=== PATIENT | female | born 1945 | race African-American/Black ===

== ENCOUNTER 2017-07-03 14:38 | Outpatient (CLI) | payer MEDICARE, OTHER | END 2017-07-03 14:39 | disposition home or self-care (01) | LOC: BICMAMMO 14:38 | PROVIDERS: ATTEND Internal Medicine | DX: Z13.820 Encounter for screening for osteoporosis (principal); Z78.0 Asymptomatic menopausal state | CPT/HCPCS: 77080 ==

== ENCOUNTER 2017-08-20 08:11 | Outpatient (CLI) | payer MEDICARE, OTHER | END 2017-08-20 08:12 | disposition home or self-care (01) | LOC: BICMAMMO 08:11 | PROVIDERS: ATTEND Internal Medicine | DX: Z12.31 Encounter for screening mammogram for malignant neoplasm of breast (principal) | CPT/HCPCS: 77063; 77067 ==

== ENCOUNTER 2018-02-03 16:14 | Emergency (ER) | payer MEDICARE, OTHER ==
[2018-02-03 16:56] LABS: #Eosinphils 0.1 thou/uL (0.0-0.7); #Lymphocytes 2.2 thou/uL (1.20-3.40); #Monocytes 0.7 thou/uL (0.11-0.59); #Neutrophils 5.5 thou/uL (1.40-6.50); %Basophils 0.4 % (0.0-1.0); %Eosinophils 1.3 % (0.0-10.0); %Lymphocytes 25.9 % (21.0-51.0); %Monocytes 8.2 % (0.0-10.0); %Neutrophils 64.3 % (42.0-75.0); Hemoglobin 13.4 g/dL (12.0-16.0); Mean Corpuscular HGB CONC 34.3 g/dL (32.0-36.0); Mean Corpuscular Hemoglobin 32.7 pg (27.0-31.0); Mean Corpuscular Volume 95.3 fL (78.0-98.0); Mean Platelet Volume 7.5 fL (7.4-10.4); Platelet Count 317 thou/uL (130-400); RBC Distribution Width 11.7 % (11.5-14.5); White Blood Cell (WBC) Count 8.6 thou/uL (4.8-10.8)
[2018-02-03 17:16] LABS: ALT (SGPT) 17 U/L (8-55); AST (SGOT) 19 U/L (5-34); Albumin 4.3 g/dL (3.4-4.8); Alkaline Phosphatase 52 U/L (40-150); Anion Gap 13 mmol/L (10-20); BUN (Urea Nitrogen) 18 mg/dL (9.8-20.1); Bilirubin, Total 0.3 mg/dL (0.2-1.2); Calc. Creatinine Clearance 0 mL/min (70-130); Calcium 9.1 mg/dL (7.8-10.44); Carbon Dioxide 25 mmol/L (23-31); Chloride 105 mmol/L (98-107); Estimated GFR-MDRD 82; Glucose 96 mg/dL (83-110); Potassium 3.6 mmol/L (3.5-5.1); Protein, Total 7.3 g/dL (6.0-8.3); Sodium 139 mmol/L (136-145)
--- NOTE | 2018-02-03 18:25 | RAD ---
RIGHT TIBIA AND FIBULA TWO VIEWS: HISTORY: Dog bite with possible infected wounds. COMPARISON: None. FINDINGS: Two views of the fibula show a right knee prosthesis without perihardware lucency or fracture. Diffu se soft tissue swelling is seen. No osseous erosions are seen. There is no evidence of fracture or dislocation. IMPRESSION: Soft tissue swelling without underlying acute osseous abnormality. POS: [facility]
[2018-02-03] MEDS ORDERED: Ampicillin/Sulbactam 1.5 GM in Sodium Chloride 0.9% 100 ML IVPB SCH (19:00)
== END 2018-02-03 20:18 | disposition home or self-care (01) ==
LOC: ERS 16:14
DX: S91.051A Open bite, right ankle, initial encounter (principal); I10 Essential (primary) hypertension; Z79.899 Other long term (current) drug therapy; W54.0XXA Bitten by dog, initial encounter
CPT/HCPCS: 36415; 80053; 85025; 87040; 96365; J0295; J7050

== ENCOUNTER 2018-08-22 08:42 | Outpatient (CLI) | payer MEDICARE, OTHER ==
--- NOTE | 2018-08-22 11:58 | MMO ---
Bilateral MAMMO Bilat Screen [facility]. CLINICAL HISTORY: Patient is 73 years old and is seen for screening. The patient has no family history of breast cancer. The patient has a history of Skin cancer. VIEWS: The views performed were: bilateral craniocaudal with tomosynthesis and bilateral mediolateral oblique with tomosynthesis. FILMS COMPARED: The present examination has been compared to prior imaging studies performed at 07/03/2013, 07/08/2014 and 07/11/2015, and at [facility] on 08/20/2017. MAMMOGRAM FINDINGS: There are scattered fibroglandular densities. Benign calcifications are noted bilaterally. There are no suspicious masses, suspicious calcifications, or new areas of architectural distortion. IMPRESSION: THERE IS NO MAMMOGRAPHIC EVIDENCE OF MALIGNANCY. A ROUTINE FOLLOW-UP MAMMOGRAM IN 1 YEAR IS RECOMMENDED. THE RESULTS OF THIS EXAM WERE SENT TO THE PATIENT. ACR BI-RADS Category 2 - Benign finding MAMMOGRAPHY NOTE: 1. A negative mammogram report should not delay a biopsy if a dominant of clinically suspicious mass is present. 2. Approximately 10% to 15% of breast cancers are not detected by mammography. 3. Adenosis and dense breasts may obscure an underlying neoplasm.
== END 2018-08-22 08:43 | disposition home or self-care (01) ==
LOC: BICMAMMO 08:42
PROVIDERS: ATTEND Internal Medicine
DX: Z12.31 Encounter for screening mammogram for malignant neoplasm of breast (principal)
CPT/HCPCS: 77063; 77067

== ENCOUNTER 2018-09-19 09:27 | Outpatient (CLI) | payer MEDICARE, OTHER ==
--- NOTE | 2018-09-19 09:53 | RAD ---
2 VIEWS RIGHT HEEL: Date: 09/19/18 INDICATION: Heel pain. FINDINGS: There is prominent enthesopathic change off the posterior and plantar calcaneus. No acute fracture is evident. Mild degenerative change seen within the midfoot. IMPRESSION: Prominent enthesopathic change off the posterior and plantar aspect of the calcaneus. POS: OFF
== END 2018-09-19 09:28 | disposition home or self-care (01) ==
LOC: BICRAD 09:27
PROVIDERS: ATTEND Internal Medicine
DX: M79.671 Pain in right foot (principal); M89.9 Disorder of bone, unspecified

== ENCOUNTER 2019-03-30 14:09 | Outpatient (CLI) | payer MEDICARE ==
--- NOTE | 2019-03-30 14:30 | RAD ---
Exam: XR Finger(s) Rt Min 2 View HISTORY: Injury of right thumb. Patient fell and twisted thumb last week. Continues to have pain. COMPARISON: None FINDINGS: There is osteoarthritis involving the first carpal metacarpal joint, metacarpal phalangeal joint, and interphalangeal joint of the right thumb. The base of the metacarpal of the thumb is displaced laterally related to the osteoarthritis. There is osteoarthritis involving the greater multangular shimon int as well. Osteoarthritis involves the metacarpal phalangeal joint of the index finger. No acute fracture, dislocation, or other acute osseous abnormality is identified. IMPRESSION: 1. No acute osseous abnormality. 2. Prominent osteoarthritis involving the right thumb.
== END 2019-03-30 14:10 | disposition home or self-care (01) ==
LOC: BICRAD 14:09
PROVIDERS: ATTEND Internal Medicine
DX: S69.91XA Unspecified injury of right wrist, hand and finger(s), initial encounter (principal); M19.041 Primary osteoarthritis, right hand

== ENCOUNTER 2019-09-25 08:31 | Outpatient (CLI) | payer MEDICARE, OTHER ==
--- NOTE | 2019-09-25 09:09 | MMO ---
Bilateral MAMMO Bilat Screen [facility]. CLINICAL HISTORY: Patient is 74 years old and is seen for screening. The patient has no family history of breast cancer. The patient has a history of Skin cancer. VIEWS: The views performed were: bilateral craniocaudal with tomosynthesis and bilateral mediolateral oblique with tomosynthesis. FILMS COMPARED: The present examination has been compared to prior imaging studies performed at and 08/22/2018. This study has been interpreted with the assistance of computer-aided detection. MAMMOGRAM FINDINGS: There are scattered fibroglandular densities. There are benign appearing calcifications seen in both breasts. There are no suspicious masses, suspicious calcifications, or new areas of architectural distortion. IMPRESSION: THERE IS NO MAMMOGRAPHIC EVIDENCE OF MALIGNANCY. A ROUTINE FOLLOW-UP MAMMOGRAM IN 1 YEAR IS RECOMMENDED. THE RESULTS OF THIS EXAM WERE SENT TO THE PATIENT. ACR BI-RADS Category 2 - Benign finding MAMMOGRAPHY NOTE: 1. A negative mammogram report should not delay a biopsy if a dominant of clinically suspicious mass is present. 2. Approximately 10% to 15% of breast cancers are not detected by mammography. 3. Adenosis and dense breasts may obscure an underlying neoplasm. Reported by: SURYA YEPEZ MD Electonically Signed: [id number]
== END 2019-09-25 08:32 | disposition home or self-care (01) ==
LOC: BICMAMMO 08:31
PROVIDERS: ATTEND Internal Medicine
DX: Z12.31 Encounter for screening mammogram for malignant neoplasm of breast (principal); Z85.828 Personal history of other malignant neoplasm of skin
CPT/HCPCS: 77063; 77067

== ENCOUNTER 2020-06-10 08:26 | Outpatient (CLI) | payer MEDICARE, OTHER ==
--- NOTE | 2020-06-10 08:52 | RAD ---
Exam: XR Shoulder Lt 3 View STANDARD HISTORY: Left anterior shoulder pain. COMPARISON: None FINDINGS: Minimal left acromioclavicular joint osteoarthritis is present. No fracture or dislocation is identif ied. Degenerative changes are seen in the visualized thoracic spine. Vascular calcifications are seen in the thoracic aorta. Calcified granuloma is seen in the left midlu ng zone. IMPRESSION: No acute osseous abnormality is identified.
== END 2020-06-10 08:27 | disposition home or self-care (01) ==
LOC: BICRAD 08:26
PROVIDERS: ATTEND Internal Medicine
DX: M25.512 Pain in left shoulder (principal)

== ENCOUNTER 2020-07-18 10:25 | Outpatient (CLI) | payer MEDICARE, OTHER ==
--- NOTE | 2020-07-18 11:40 | MRI ---
MRI Upper Ext Jt Lt WO Con History: Traumatic tear left rotator cuff Comparison: Left shoulder radiograph May 2020 Findings: Biceps tendon: Severe interstitial tearing at the proximal intertubercular groove with volume loss. Interstitial tear extends into the very attenuated intra-articular tendon which has extensive interstitial tearing. Labrum: Tear throughout the superior labrum anterior-posterior to the biceps labral expansion extendi ng into the posterior superior labrum. Rotator cuff: Interstitial type delamination of the superior fibers subscapularis tendon. Full thickn ess, full width supraspinatus and infraspinatus tendon tears from the footprint retracted to the differential retraction of fibers, the bursal surface fibers retracted to the mid humeral head and th e articular surface fibers to the medial humeral head. Muscles: Moderate supraspinatus and infraspinatus muscle atrophy. Cartilage: A few full thickness chondral fissures of the central glenoid inferiorly. 25-50% chondral fraying of the humeral head. Soft tissues: Small joint effusion. Small subacromial subdeltoid bursa effusion. Bones: Type II acromion. Moderate degenerative disease acromioclavicular joint. Normal glenoid versio n. Impression: 1. Full thickness, full width supraspinatus and infraspinatus tendon tears from the footprint with di fferential fiber retraction. Moderate associated muscle atrophy. 2. Superior labral tear anterior-posterior to the biceps labral expansion extending into an intrasubs tance posterior superior labral tear. 3. 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 4. Severe interstitial tearing of the biceps tendon proximal intertubercular groove extending to the intra-articular tendon. There is also some subluxation upon the lesser tuberosity likely from a partially insufficient biceps tonai and the subscapularis tendon for which there is an adjacent line ar split tear for which it is partially subluxed into. Transcribed Date/Time: 07/18/2020 1:19 PM
== END 2020-07-18 10:26 | disposition home or self-care (01) ==
LOC: BICMRI 10:25
PROVIDERS: ATTEND Orthopaedic Surgery
DX: S46.012A Strain of muscle(s) and tendon(s) of the rotator cuff of left shoulder, initial encounter (principal); M75.122 Complete rotator cuff tear or rupture of left shoulder, not specified as traumatic; M94.212 Chondromalacia, left shoulder; M62.512 Muscle wasting and atrophy, not elsewhere classified, left shoulder

== ENCOUNTER 2020-07-29 09:00 | Outpatient (CLI) | payer MEDICARE, OTHER ==
[2020-07-29 10:35] LABS: #Basophils 0.1 10x3/uL (0.0-0.2); #Eosinphils 0.1 10x3/uL (0.0-0.5); #Monocytes 0.5 10x3/uL (0.0-1.1); #Neutrophils 3.1 10x3/uL (1.5-8.4); %Basophils 1.1 % (0.0-2.0); %Eosinophils 2.5 % (0.0-6.0); %Lymphocytes 33.3 % (18.0-47.0); %Monocytes 8.6 % (0.0-10.0); %Neutrophils 54.1 % (40.0-75.0); Hemoglobin 14.5 g/dL (12.0-15.5); Mean Corpuscular HGB CONC 32.5 g/dL (32.0-36.0); Mean Corpuscular Hemoglobin 30.5 pg (27.0-33.0); Mean Corpuscular Volume 93.7 fl (81.6-98.3); Mean Platelet Volume 10.1 fl (7.4-10.4); Platelet Count 346 10x3/uL (150-450); RBC Distribution Width 13.4 % (11.5-14.5); Red Blood Cell (RBC) Count 4.76 10x6/uL (3.90-5.03); White Blood Cell (WBC) Count 5.7 10x3/uL (3.5-10.5)
[2020-07-29 11:19] LABS: Calcium 9.3 mg/dL (7.8-10.44); Chloride 106 mmol/L (98-107); Glucose 87 mg/dL (83-110); Potassium 4.3 mmol/L (3.5-5.1); Sodium 143 mmol/L (136-145)
[2020-07-29 11:30] LABS: Anion Gap 13 mmol/L (10-20); BUN (Urea Nitrogen) 16 mg/dL (9.8-20.1); Calc. Creatinine Clearance 0 mL/min (70-130); Carbon Dioxide 28 mmol/L (23-31)
[2020-07-29 21:52] LABS: SARS-CoV-2 PCR by NAA Not Detected (NotDetected)
== END 2020-07-29 09:01 | disposition home or self-care (01) ==
LOC: LABBT 09:00
PROVIDERS: ATTEND Orthopaedic Surgery
DX: Z01.818 Encounter for other preprocedural examination (principal); Z20.822 Contact with and (suspected) exposure to COVID-19; S46.012A Strain of muscle(s) and tendon(s) of the rotator cuff of left shoulder, initial encounter
CPT/HCPCS: 80048; 85025; 93005; U0003; U0005; 87635; 93010

== ENCOUNTER 2020-08-03 06:53 | Day surgery (SDC) | payer MEDICARE, OTHER ==
[2020-08-02 10:28] VITALS: BMI 25.9
[2020-08-03] MEDS ORDERED: Vancomycin 1 GM/200 ML BAG ONE (07:45)
[2020-08-03] MEDS ORDERED: Fentanyl 100 MCG/2 ML VIAL ONE ×2 (08:31→09:49)
[2020-08-03] MEDS ORDERED: Midazolam HCl 2 mg/2 ml Vial ONE (08:31)
[2020-08-03] MEDS ORDERED: Promethazine HCl 25 MG/ML VIAL IM PRN (09:00)
[2020-08-03] MEDS ORDERED: Ropivacaine 0.2% 550 ML 550 ML NERVE BLCK SCH (09:00)
[2020-08-03] MEDS ORDERED: traMADol HCl 50 MG TAB PO PRN ×2 (09:00)
[2020-08-03] MEDS ORDERED: HYDROcodone/Acetaminophen 10/325 mg Tablet PO PRN ×2 (09:00)
[2020-08-03] MEDS ORDERED: Zolpidem Tartrate 5 MG TAB PO PRN (09:00)
[2020-08-03] MEDS ORDERED: Ondansetron PF 4 MG/2 ML Vial IVP PRN (09:00)
[2020-08-03] MEDS ORDERED: Fentanyl 100 MCG/2 ML VIAL IV PRN (09:01)
[2020-08-03] MEDS ORDERED: PROPOFOL 200 MG/20 ML VIAL ONE (09:42)
[2020-08-03] MEDS ORDERED: PHENYLEPHRINE-NS 100 MCG/ML 10 ML SYRINGE ONE ×2 (09:42→10:28)
[2020-08-03] MEDS ORDERED: Ondansetron PF 4 MG/2 ML Vial ONE (09:42)
[2020-08-03] MEDS ORDERED: Rocuronium Bromide 10 MG/ML (10ML VIAL) ONE (09:42)
[2020-08-03] MEDS ORDERED: Lidocaine 1% PF 5 ML VIAL ONE (09:42)
[2020-08-03] MEDS ORDERED: Dexamethasone 20 MG/5 ML VIAL ONE (09:42)
[2020-08-03] MEDS ORDERED: SUGAMMADEX SODIUM 200 MG/2 ML VIAL ONE (10:40)
[2020-08-03] MEDS ORDERED: HYDROcodone/Acetaminophen 5/325 mg Tablet ONE (11:54)
== END 2020-08-03 13:48 | disposition home or self-care (01) ==
LOC: SDC 06:53
PROVIDERS: ATTEND Orthopaedic Surgery
PROC: 0RHK04Z Insertion of Internal Fixation Device into Left Shoulder Joint, Open Approach (ICD-10-PCS; principal; 2020-08-03)
PROC: 0LQ20ZZ Repair Left Shoulder Tendon, Open Approach (ICD-10-PCS; 2020-08-03)
PROC: 0RHK04Z Insertion of Internal Fixation Device into Left Shoulder Joint, Open Approach (ICD-10-PCS; 2020-08-03)
PROC: 0LS40ZZ Reposition Left Upper Arm Tendon, Open Approach (ICD-10-PCS; 2020-08-03)
PROC: 3E0T3BZ Introduction of Anesthetic Agent into Peripheral Nerves and Plexi, Percutaneous Approach (ICD-10-PCS; 2020-08-03)
DX: S46.012A Strain of muscle(s) and tendon(s) of the rotator cuff of left shoulder, initial encounter (principal); M25.812 Other specified joint disorders, left shoulder; S46.212A Strain of muscle, fascia and tendon of other parts of biceps, left arm, initial encounter; M25.312 Other instability, left shoulder; G89.18 Other acute postprocedural pain; M19.012 Primary osteoarthritis, left shoulder; I10 Essential (primary) hypertension; E78.5 Hyperlipidemia, unspecified; I08.1 Rheumatic disorders of both mitral and tricuspid valves; G20 Parkinson's disease; Z79.899 Other long term (current) drug therapy; Z91.041 Radiographic dye allergy status; Z91.013 Allergy to seafood; W19.XXXA Unspecified fall, initial encounter
CPT/HCPCS: 23410; 23430; 64416; A4306; C1713 ×2; J0690; J1100; J2250; J2405; J2704; J2795; J3010; J3370

== ENCOUNTER 2020-09-29 08:52 | Outpatient (CLI) | payer MEDICARE, OTHER | END 2020-09-29 08:53 | disposition home or self-care (01) | LOC: BICMAMMO 08:52 | PROVIDERS: ATTEND Internal Medicine | DX: Z12.31 Encounter for screening mammogram for malignant neoplasm of breast (principal); Z13.820 Encounter for screening for osteoporosis; Z78.0 Asymptomatic menopausal state; M85.852 Other specified disorders of bone density and structure, left thigh; Z85.828 Personal history of other malignant neoplasm of skin | CPT/HCPCS: 77063; 77067; 77080 ==

== ENCOUNTER 2021-03-15 08:32 | Outpatient (CLI) | payer MEDICARE, OTHER | END 2021-03-15 08:33 | disposition home or self-care (01) | LOC: BICRAD 08:32 | PROVIDERS: ATTEND Internal Medicine | DX: M19.041 Primary osteoarthritis, right hand (principal) | CPT/HCPCS: 36415; 80053; 80061; 83036; 83520; 85025; 86200 ==

== ENCOUNTER 2021-05-30 09:13 | Outpatient (CLI) | payer MEDICARE, OTHER ==
[2021-05-30 11:59] LABS: Bilirubin Neg (Negative); Blood, Urine Negative (Negative); Clarity Clear (Clear); Glucose, Urine (Dipstick) Normal (Negative); Ketone, Urine Negative (Negative); Leukocyte 100 (Negative); Nitrite Negative (Negative); Protein, Urine (Dipstick) Negative (Neg-Trace); Urobilinogen Normal mg/dL (Less than 2)
[2021-05-30 12:04] LABS: #Basophils 0.1 10x3/uL (0.0-0.2); #Eosinphils 0.2 10x3/uL (0.0-0.5); #Monocytes 0.6 10x3/uL (0.0-1.1); #Neutrophils 4.7 10x3/uL (1.5-8.4); %Basophils 0.9 % (0.0-2.0); %Eosinophils 2.9 % (0.0-6.0); %Monocytes 7.7 % (0.0-10.0); %Neutrophils 62.1 % (40.0-75.0); Hemoglobin 14.1 g/dL (12.0-15.5); Mean Corpuscular Hemoglobin 30.5 pg (27.0-33.0); Mean Corpuscular Volume 92.2 fl (81.6-98.3); Mean Platelet Volume 10.2 fl (7.4-10.4); Platelet Count 366 10x3/uL (150-450); RBC Distribution Width 13.7 % (11.5-14.5); Red Blood Cell (RBC) Count 4.63 10x6/uL (3.90-5.03); White Blood Cell (WBC) Count 7.5 10x3/uL (3.5-10.5)
[2021-05-30 12:26] LABS: Anion Gap 14 mmol/L (10-20); BUN (Urea Nitrogen) 15 mg/dL (9.8-20.1); Calc. Creatinine Clearance 0 mL/min (70-130); Calcium 9.7 mg/dL (7.8-10.44); Carbon Dioxide 28 mmol/L (23-31); Chloride 103 mmol/L (98-107); Glucose 94 mg/dL (83-110); Potassium 4.1 mmol/L (3.5-5.1); Sodium 141 mmol/L (136-145)
[2021-05-30 20:22] LABS: SARS-CoV-2 PCR by NAA Not Detected (NotDetected)
== END 2021-05-30 09:14 | disposition home or self-care (01) ==
LOC: LABBT 09:13
PROVIDERS: ATTEND Orthopaedic Surgery Hand Surgery
DX: Z01.818 Encounter for other preprocedural examination (principal); M18.11 Unilateral primary osteoarthritis of first carpometacarpal joint, right hand; Z20.822 Contact with and (suspected) exposure to COVID-19
CPT/HCPCS: 80048; 81003; 85025; 93005; U0003; U0005; 93010

== ENCOUNTER 2021-07-18 08:28 | Outpatient (CLI) | payer MEDICARE, OTHER ==
[2021-07-18 10:09] LABS: Bilirubin Neg (Negative); Blood, Urine Negative (Negative); Glucose, Urine (Dipstick) Normal (Negative); Ketone, Urine Negative (Negative); Leukocyte 500 (Negative); Nitrite Negative (Negative); Protein, Urine (Dipstick) 15 mg/dl (Neg-Trace); Urobilinogen Normal mg/dL (Less than 2)
[2021-07-18 10:23] LABS: #Basophils 0.1 10x3/uL (0.0-0.2); #Eosinphils 0.2 10x3/uL (0.0-0.5); #Monocytes 0.6 10x3/uL (0.0-1.1); #Neutrophils 3.2 10x3/uL (1.5-8.4); %Basophils 0.9 % (0.0-2.0); %Eosinophils 2.6 % (0.0-6.0); %Lymphocytes 31.1 % (18.0-47.0); %Monocytes 10.3 % (0.0-10.0); %Neutrophils 54.9 % (40.0-75.0); Hemoglobin 13.5 g/dL (12.0-15.5); Mean Corpuscular HGB CONC 33.2 g/dL (32.0-36.0); Mean Corpuscular Hemoglobin 30.8 pg (27.0-33.0); Mean Corpuscular Volume 92.9 fl (81.6-98.3); Mean Platelet Volume 10.2 fl (7.4-10.4); Platelet Count 323 10x3/uL (150-450); RBC Distribution Width 14.3 % (11.5-14.5); Red Blood Cell (RBC) Count 4.38 10x6/uL (3.90-5.03); White Blood Cell (WBC) Count 5.8 10x3/uL (3.5-10.5)
[2021-07-18 10:25] LABS: Clarity Slightly Cloudy (Clear)
[2021-07-18 10:48] LABS: Anion Gap 12 mmol/L (10-20); BUN (Urea Nitrogen) 15 mg/dL (9.8-20.1); Calc. Creatinine Clearance 0 mL/min (70-130); Calcium 8.9 mg/dL (7.8-10.44); Carbon Dioxide 27 mmol/L (23-31); Chloride 105 mmol/L (98-107); Glucose 98 mg/dL (83-110); Sodium 140 mmol/L (136-145)
[2021-07-18 20:19] LABS: SARS-CoV-2 PCR by NAA Not Detected (NotDetected)
== END 2021-07-18 08:29 | disposition home or self-care (01) ==
LOC: LABBT 08:28
PROVIDERS: ATTEND Orthopaedic Surgery Hand Surgery
DX: Z01.812 Encounter for preprocedural laboratory examination (principal); M18.11 Unilateral primary osteoarthritis of first carpometacarpal joint, right hand; M19.041 Primary osteoarthritis, right hand; Z20.822 Contact with and (suspected) exposure to COVID-19
CPT/HCPCS: 80048; 81003; 85025; U0003; U0005

== ENCOUNTER 2021-07-21 05:40 | Day surgery (SDC) | payer MEDICARE, OTHER ==
[2021-05-25 13:43] VITALS: BMI 26.4
[2021-07-21] MEDS ORDERED: Bacitracin Zinc Ointment 30 gm TUBE ONE (06:11)
[2021-07-21] MEDS ORDERED: Neomycin-Polymyxin 1 ML AMP ONE (06:11)
[2021-07-21] MEDS ORDERED: Bupivacaine PF 0.5% 30 ML VIAL ONE (06:11)
[2021-07-21] MEDS ORDERED: Ropivacaine 0.5% HCl/PF (150 MG/30 ML VIAL) ONE ×2 (06:44→07:30)
[2021-07-21] MEDS ORDERED: Midazolam HCl 2 mg/2 ml Vial ONE ×2 (06:44→07:15)
[2021-07-21] MEDS ORDERED: Fentanyl 250 MCG/5 ML VIAL ONE (07:15)
[2021-07-21] MEDS ORDERED: ceFAZolin (BATCH) 2 GM/100 ML BAG ONE (07:19)
[2021-07-21] MEDS ORDERED: Lidocaine 1% (PF) 30 ML VIAL ONE (07:23)
[2021-07-21] MEDS ORDERED: ePHEDrine 50 MG/ML VIAL ONE (07:30)
[2021-07-21] MEDS ORDERED: PROPOFOL 200 MG/20 ML VIAL ONE (07:30)
[2021-07-21] MEDS ORDERED: Ondansetron PF 4 MG/2 ML Vial ONE (07:30)
[2021-07-21] MEDS ORDERED: Dexamethasone 20 MG/5 ML VIAL ONE (07:30)
[2021-07-21] MEDS ORDERED: Lidocaine 1% PF 5 ML VIAL ONE (07:30)
[2021-07-21] MEDS ORDERED: Metoprolol Tartrate 5 MG/5 ML VIAL ONE (13:22)
== END 2021-07-21 14:55 | disposition home or self-care (01) ==
LOC: SDC 05:40
PROVIDERS: ATTEND Orthopaedic Surgery Hand Surgery
PROC: 0RGW04Z Fusion of Right Finger Phalangeal Joint with Internal Fixation Device, Open Approach (ICD-10-PCS; principal; 2021-07-21)
PROC: 0RRW0JZ Replacement of Right Finger Phalangeal Joint with Synthetic Substitute, Open Approach (ICD-10-PCS; 2021-07-21)
PROC: 0RRU0JZ Replacement of Right Metacarpophalangeal Joint with Synthetic Substitute, Open Approach (ICD-10-PCS; 2021-07-21)
PROC: 3E0T3BZ Introduction of Anesthetic Agent into Peripheral Nerves and Plexi, Percutaneous Approach (ICD-10-PCS; 2021-07-21)
DX: M19.041 Primary osteoarthritis, right hand (principal); M15.1 Heberden's nodes (with arthropathy); M15.2 Bouchard's nodes (with arthropathy); I10 Essential (primary) hypertension; Z79.899 Other long term (current) drug therapy; Z91.013 Allergy to seafood; Z91.041 Radiographic dye allergy status
CPT/HCPCS: 26531; 26536; 26860; 64415; 73130; 76000; C1713; C1776; J0690; J1100; J2001; J2250; J2405; J2704; J2795; J3010; J3490; S0020

== ENCOUNTER 2021-10-02 09:01 | Outpatient (CLI) | payer MEDICARE, OTHER | END 2021-10-02 09:02 | disposition home or self-care (01) | LOC: BICMAMMO 09:01 | PROVIDERS: ATTEND Internal Medicine | DX: Z12.31 Encounter for screening mammogram for malignant neoplasm of breast (principal); Z85.828 Personal history of other malignant neoplasm of skin | CPT/HCPCS: 77063; 77067 ==

== ENCOUNTER 2022-11-13 09:39 | Outpatient (CLI) | payer MEDICARE, OTHER | END 2022-11-13 09:40 | disposition home or self-care (01) | LOC: BICMAMMO 09:39 | PROVIDERS: ATTEND Internal Medicine | DX: Z12.31 Encounter for screening mammogram for malignant neoplasm of breast (principal); Z13.820 Encounter for screening for osteoporosis; Z78.0 Asymptomatic menopausal state; Z85.828 Personal history of other malignant neoplasm of skin | CPT/HCPCS: 77063; 77067; 77080 ==

== ENCOUNTER 2024-03-23 08:05 | Outpatient (CLI) | payer MEDICARE, OTHER ==
[2024-03-23 09:54] LABS: #Basophils 0.06 10x3/uL (0.0-0.2); %Basophils 0.8 % (0.0-1.0); %Eosinophils 1.3 % (0.0-10.0); %Lymphocytes 26.4 % (21.0-51.0); %Neutrophils 64.1 % (42.0-75.0); Hematocrit 43.4 % (36.0-47.0); Hemoglobin 14.1 g/dL (12.0-16.0); Mean Corpuscular HGB CONC 32.5 g/dL (32.0-36.0); Mean Corpuscular Hemoglobin 30.3 pg (27.0-31.0); Mean Corpuscular Volume 93.1 fL (78.0-98.0); Mean Platelet Volume 9.4 fL (7.4-10.4); Platelet Count 329 10x3/uL (130-400); RBC Distribution Width 14.1 % (11.5-14.5); Red Blood Cell (RBC) Count 4.66 mill/uL (4.20-5.40)
[2024-03-23 10:35] LABS: Anion Gap 12 mmol/L (10-20); BUN (Urea Nitrogen) 14 mg/dL (9.8-20.1); Calc. Creatinine Clearance 0 mL/min (70-130); Calcium 9.1 mg/dL (7.8-10.44); Carbon Dioxide 26 mmol/L (23-31); Chloride 105 mmol/L (98-107); Estimated GFR 87; Glucose 94 mg/dL (83-110); Sodium 139 mmol/L (136-145)
== END 2024-03-23 08:06 | disposition home or self-care (01) ==
LOC: LABBT 08:05
PROVIDERS: ATTEND Orthopaedic Surgery Hand Surgery
DX: Z01.818 Encounter for other preprocedural examination (principal); T85.848A Pain due to other internal prosthetic devices, implants and grafts, initial encounter
CPT/HCPCS: 80048; 85025; 93005; 93010